=== PATIENT | male | born 1955 | race Caucasian/White ===

== ENCOUNTER → 2022-05-19 | Outpatient (RCR) | payer MEDICARE | END | disposition home or self-care (01) | LOC: ONC 04-26 09:06 | PROVIDERS: ATTEND Radiology Radiation Oncology | DX: Z51.0 Encounter for antineoplastic radiation therapy (principal); C61 Malignant neoplasm of prostate | CPT/HCPCS: 77300; 77301; 77334; 77336; 77338; 77385; 99204 ==

== ENCOUNTER → 2022-06-18 | Outpatient (RCR) | payer MEDICARE | END | disposition home or self-care (01) | LOC: ONC 05-20 09:14 | PROVIDERS: ATTEND Radiology Radiation Oncology | DX: Z51.0 Encounter for antineoplastic radiation therapy (principal); C61 Malignant neoplasm of prostate | CPT/HCPCS: 77300; 77336; 77385 ==

== ENCOUNTER 2022-06-29 08:57 | Outpatient (RCR) | payer MEDICARE | END 2022-07-19 | disposition home or self-care (01) | LOC: ONC 08:57 | PROVIDERS: ATTEND Radiology Radiation Oncology | DX: Z51.0 Encounter for antineoplastic radiation therapy (principal); C61 Malignant neoplasm of prostate | CPT/HCPCS: 77336; 77385 ==

== ENCOUNTER 2022-08-26 09:15 | Outpatient (RCR) | payer MEDICARE | END 2022-09-18 | disposition home or self-care (01) | LOC: ONC 09:15 | PROVIDERS: ATTEND Radiology Radiation Oncology | DX: C61 Malignant neoplasm of prostate (principal) | CPT/HCPCS: 99213 ==